=== PATIENT | female | born 1960 | race Hispanic/Latino ===

== ENCOUNTER 2021-12-02 15:45 | Emergency (ER) | payer BC, OTHER ==
[~2021-12-02] VITALS: Ht 157.5 cm; Wt 59.9 kg
[~2021-12-02 15:45] MED LIST: CREON DR 6,000 U1 EA PO
[2021-12-02] MEDS ORDERED: KETOROLAC TROMETHAMINE 30 MG/ML VIAL IV STA (16:05)
[2021-12-02] MEDS ORDERED: ACETAMINOPHEN 325 MG TAB PO ONE (16:15)
[2021-12-02] MEDS ORDERED: ACETAMINOPHEN 325 MG TAB ONE (16:52)
[2021-12-02] MEDS ORDERED: KETOROLAC TROMETHAMINE 30 MG/ML VIAL ONE (16:52)
[2021-12-02] MEDS ORDERED: IBUPROFEN400 MG PO (17:12)
[2021-12-02] MEDS ORDERED: ULTRAM 50MG50 MG PO (17:12)
== END 2021-12-02 18:17 | disposition home or self-care (01) ==
LOC: FSED 15:53
DX: R07.89 Other chest pain (principal); E78.5 Hyperlipidemia, unspecified
CPT/HCPCS: 71045; 80053; 82553; 84484; 85025; 93005; 99283; J1885

== ENCOUNTER 2022-12-01 15:13 | Emergency (ER) | payer BC ==
[~2022-12-01] VITALS: Ht 157.5 cm; Wt 55.3 kg
[~2022-12-01 15:13] MED LIST changes: +IBUPROFEN400 MG PO; +ULTRAM 50MG50 MG PO
[2022-12-01] MEDS ORDERED: FAMOTIDINE 20 MG/2 ML VIAL IV STA (16:36)
[2022-12-01] MEDS ORDERED: ONDANSETRON HCL INJ 2MG/ML 2ML 2 MG/ML VIAL IV STA (16:36)
[2022-12-01] MEDS ORDERED: LACTATED RINGER'S 1,000 ML IV ONE (16:45)
[2022-12-01] MEDS ORDERED: LACTATED RINGER'S 1,000 ML ONE (16:56)
[2022-12-01] MEDS ORDERED: FAMOTIDINE 20 MG/2 ML VIAL IV ONE (16:56)
[2022-12-01] MEDS ORDERED: IOPAMIDOL 370 MG/ML 100 ML INFUS..BTL INJ ONE (18:48)
[2022-12-01] MEDS ORDERED: CIPRO500 MG PO (19:38)
[2022-12-01] MEDS ORDERED: METRONIDAZOLE500 MG PO (19:38)
[2022-12-01 19:48] VITALS: BP 126/58
== END 2022-12-01 19:48 | disposition home or self-care (01) ==
LOC: FSED 15:17
DX: K52.9 Noninfective gastroenteritis and colitis, unspecified (principal); E86.0 Dehydration; N39.0 Urinary tract infection, site not specified; E78.5 Hyperlipidemia, unspecified
CPT/HCPCS: 74177; 87045; 99284; J7121; Q9967